=== PATIENT | female | born 1955 | race Two or more races ===

== ENCOUNTER 2018-12-12 12:36 | Outpatient (CLI) | payer MEDICAID | END 2018-12-12 12:37 | disposition home or self-care (01) | LOC: DI 12:36 | PROVIDERS: ATTEND Internal Medicine Cardiovascular Disease | DX: R94.31 Abnormal electrocardiogram [ECG] [EKG] (principal); R07.89 Other chest pain; I10 Essential (primary) hypertension; I45.10 Unspecified right bundle-branch block | CPT/HCPCS: 93306 ==

== ENCOUNTER 2019-01-10 12:49 | Outpatient (CLI) | payer MEDICAID ==
--- NOTE | 2019-01-10 18:42 | XRAY Report ---
Reason: R/O PNEUMONIA Procedure Date: 01/10/2019 Accession Number: [id number] / [id number] Procedure: XR - Chest 2 View X-Ray CPT Code: 78533 FULL RESULT: EXAM: CHEST RADIOGRAPHY EXAM DATE: 01/10/2019 01:01 PM. CLINICAL HISTORY: R/O PNEUMONIA. COMPARISON: None. TECHNIQUE: 2 views. FINDINGS: Lungs/Pleura: No focal opacities evident. No pleural effusion. No pneumothorax. Normal volumes. Mediastinum: Heart and mediastinal contours are unremarkable. Other: Degenerative change in the spine with S-shaped thoracolumbar scoliosis. IMPRESSION: Clear lungs. RADIA
== END 2019-01-10 12:50 | disposition home or self-care (01) ==
LOC: DI 12:49
PROVIDERS: ATTEND Family Medicine
DX: J20.9 Acute bronchitis, unspecified (principal)
CPT/HCPCS: 71046

== ENCOUNTER 2019-05-12 19:27 | Outpatient (CLI) | payer MEDICAID | END 2019-05-12 19:28 | disposition critical access hospital (66) | LOC: EMS 19:27 | PROVIDERS: ATTEND Surgery | DX: S89.92XA Unspecified injury of left lower leg, initial encounter (principal); W11.XXXA Fall on and from ladder, initial encounter; Y92.007 Garden or yard of unspecified non-institutional (private) residence as the place of occurrence of the external cause | CPT/HCPCS: A0425; A0429; A0999 ==

== ENCOUNTER 2019-05-12 19:45 | Emergency (ER) | payer MEDICAID ==
--- NOTE | 2019-05-12 20:01 | ED Physician Documentation ---
History of Present Illness - Stated complaint Stated Complaint: KNEE INJURY - Chief complaint Chief Complaint: Trauma Ext PD PAST MEDICAL HISTORY - Allergies Allergies/Adverse Reactions: Allergies Allergy/AdvReac Type Severity Reaction Status Date / Time Penicillins Allergy Itching Verified 05/12/19 19:59 Results - Vitals Vitals: Vital Signs - 24 hr 05/12/19 19:47 Temperature 36.6 C Heart Rate 86 Respiratory 16 Rate Blood Pressure 144/78 H O2 Saturation 96 Oxygen O2 Source Room air
[2019-05-12] MEDS ORDERED: MORPHINE 2 MG/ML CARPUJECT IVP STA ×2 (20:13→22:23)
[2019-05-12] MEDS ORDERED: ONDANSETRON 4 MG/2 ML VIAL IVP STA (20:13)
--- NOTE | 2019-05-12 21:37 | XRAY Report ---
Reason: Fall, impact to lower leg Procedure Date: 05/12/2019 Accession Number: [id number] / [id number] Procedure: XR - Ankle 3 View LT CPT Code: FULL RESULT: EXAM: LEFT ANKLE RADIOGRAPHY EXAM DATE: 05/12/2019 09:25 PM. CLINICAL HISTORY: Fall, impact to lower leg. COMPARISON: None. TECHNIQUE: 3 views. FINDINGS: Bones: No acute fracture. No suspicious osseous lesion. Joints: No significant joint space narrowing. No dislocation. Other: None. IMPRESSION: No acute osseous abnormality. RADIA
--- NOTE | 2019-05-12 21:41 | XRAY Report ---
Reason: Impact to left leg/knee, swelling Procedure Date: 05/12/2019 Accession Number: [id number] / [id number] Procedure: XR - Tib/Fib LT CPT Code: FULL RESULT: EXAM: LEFT TIBIA/FIBULA RADIOGRAPHY EXAM DATE: 05/12/2019 09:25 PM. CLINICAL HISTORY: Impact to left leg/knee, swelling. COMPARISON: KNEE 3 VIEW LT 05/12/2019 8:48 PM. TECHNIQUE: 2 views. FINDINGS: Bones: Comminuted proximal tibial fracture extending to the tibial plateau. There is separation least 1.5 cm in the tibial plateau. Proximal fibular comminuted fracture. Posterior angulation Lateral displacement of the distal fibula by one shaft width. Soft Tissues: Soft tissue swelling. IMPRESSION: 1. Comminuted proximal tibial fracture extending to the tibial plateau with separation of 1.5 cm at the plateau 2. Proximal fibular fracture with angulation, offset RADIA
--- NOTE | 2019-05-12 21:43 | XRAY Report ---
Reason: fall/injury Procedure Date: 05/12/2019 Accession Number: [id number] / [id number] Procedure: XR - Knee 3 View LT CPT Code: FULL RESULT: EXAM: LEFT KNEE RADIOGRAPHY EXAM DATE: 05/12/2019 09:25 PM. CLINICAL HISTORY: Fall/injury. COMPARISON: None. TECHNIQUE: 3 views. FINDINGS: Bones: Acute comminuted lateral tibial plateau fracture with approximate 3 cm lateral displacement of the fracture fragments. The tibial plateau fracture is in continuity with an acute comminuted transverse proximal tibial metaphyseal fracture which is mildly impacted and minimally laterally displaced. Acute comminuted fracture of the proximal fibular diaphysis with one shaft width lateral displacement of the largest distal fracture fragment. No suspicious osseous lesion. Joints: Large lipohemarthrosis. No significant joint space narrowing. No dislocation. Other: Diffuse soft tissue swelling about the knee. IMPRESSION: 1. Acute comminuted lateral tibial plateau fracture with approximate 3 cm lateral displacement of the fracture fragments. Recommend orthopedic surgery consultation and CT knee for further evaluation. 2. The tibial plateau fracture is in continuity with an acute comminuted transverse proximal tibial metaphyseal fracture which is mildly impacted and mildly laterally displaced. 3. Acute comminuted fracture of the proximal fibular diaphysis with one shaft width lateral displacement of the largest distal fracture fragment. 4. Large lipohemarthrosis. RADIA
[2019-05-12 22:29] LABS: BASOPHILS # (AUTO) 0.1 10^3/uL (0.0-0.1); BASOPHILS % (AUTO) 0.4 %; EOSINOPHILS # (AUTO) 0.2 10^3/uL (0.0-0.7); EOSINOPHILS % (AUTO) 1.5 %; HGB - HEMOGLOBIN 11.7 g/dL (12.0-16.0); LYMPHOCYTES # (AUTO) 4.1 10^3/uL (1.5-3.5); LYMPHOCYTES % (AUTO) 30.1 %; MEAN CORPUSCULAR HEMOGLOBIN 34.5 pg (27.0-31.0); MEAN CORPUSCULAR HGB CONC 34.6 g/dL (32.0-36.0); MEAN CORPUSCULAR VOLUME 99.7 fL (81.0-99.0); MEAN PLATELET VOLUME 9.3 fL (7.9-10.8); MONOCYTES # (AUTO) 0.8 10^3/uL (0.0-1.0); MONOCYTES % (AUTO) 5.6 %; NEUTROPHILS # (AUTO) 8.3 10^3/uL (1.5-6.6); NEUTROPHILS % (AUTO) 61.7 %; PLT - PLATELET COUNT 221 10^3/uL (130-450); RED BLOOD COUNT 3.39 10^6/uL (4.20-5.40); RED CELL DISTRIBUTION WIDTH 13.1 % (12.0-15.0); WHITE BLOOD COUNT 13.5 x10^3/uL (4.8-10.8)
[2019-05-12 22:33] LABS: PT - PROTHROMBIN TIME 11.7 secs (9.9-12.6)
--- NOTE | 2019-05-12 22:38 | ED Physician Documentation ---
History of Present Illness - Stated complaint Stated Complaint: KNEE INJURY - Chief complaint Chief Complaint: Trauma Ext - Additonal information Additional information: This is a 64-year-old female with a history of osteoporosis, who presents with left knee and lower leg pain after fall. Patient was on a stepladder working around her house this afternoon around 2:30 PM, when she fell, Impacting the knee directly. She felt a pop/crunch and soft fragment of bone tenting her skin afterwards. She was trying to crawl to her house to get help, and eventually his evening she was able to call EMS and they brought her here for evaluation. She denies numbness, but does have severe pain with movement of the leg just below the knee. Review of Systems Constitutional: denies: Fever Cardiac: denies: Chest pain / pressure Respiratory: denies: Dyspnea GI: denies: Abdominal Pain Musculoskeletal: reports: Extremity pain Neurologic: denies: Generalized weakness PD PAST MEDICAL HISTORY - Past Medical History Past Medical History: Yes Cardiovascular: Hypertension, High cholesterol Musculoskeletal: Osteoporosis - Allergies Allergies/Adverse Reactions: Allergies Allergy/AdvReac Type Severity Reaction Status Date / Time Penicillins Allergy Itching Verified 05/12/19 19:59 - Social History Does the pt smoke?: Yes Smoking Status: Current every day smoker Does the pt drink ETOH?: Yes Does the pt have substance abuse?: No PD ED PE NORMAL - Vitals Vital signs reviewed: Yes - General General: Alert and oriented X 3 - HEENT HEENT: Atraumatic - Neck Neck: No bony TTP - Cardiac Cardiac: RRR - Respiratory Respiratory: No respiratory distress, Clear bilaterally - Abdomen Abdomen: Soft, Non distended - Extremities Extremities: Other (Left leg has a deformity and swelling and bruising from below the knee to the ankle. No tenderness or deformity of the hips/pelvis and femur. Strong DP and PT pulses bilaterally, sensation to light touch is intact, and patient is able to wiggle all toes.) - Neuro Neuro: Alert and oriented X 3 - Psych Psych: Normal mood, Normal affect Results - Vitals Vitals: Oxygen O2 Source Room air - Labs Labs: Laboratory Tests 05/12/19 05/12/19 05/12/19 21:45 21:45 21:45 WBC 13.5 H RBC 3.39 L Hgb 11.7 L Hct 33.8 L MCV 99.7 H MCH 34.5 H MCHC 34.6 RDW 13.1 Plt Count 221 MPV 9.3 Neut # (Auto) 8.3 H Lymph # (Auto) 4.1 H Jessamine # (Auto) 0.8 Eos # (Auto) 0.2 Baso # (Auto) 0.1 Absolute Nucleated RBC 0.00 Nucleated RBC % 0.0 PT 11.7 INR 1.0 Sodium 141 Potassium 4.0 Chloride 107 Carbon Dioxide 24 Anion Gap 10.0 BUN 17 Creatinine 0.7 Estimated GFR (MDRD) 84 L Glucose 104 H Calcium 8.9 Total Bilirubin 0.5 AST 20 ALT 15 Alkaline Phosphatase 53 Total Protein 6.7 Albumin 3.7 Globulin 3.0 Albumin/Globulin Ratio 1.2 Lipase 29 - Rads (name of study) XR knee, tib/fib, ankle Radiology: Other (Comminuted displaced tibial plateau fracture and fibular fracture.) Procedures - Splint (location) Lower extremity left Splint applied by: Tech Type of splint: Long leg, Posterior Other: Patient tolerated well, No complications, Neurovascular intact PD MEDICAL DECISION MAKING - ED course Complexity details: considered differential (Fracture, dislocation, contusion, ) ED course: Pt presents with left leg swollen and painful after a fall. XR shows a comminuted and displaced tibial fracture extending into the plateau, and a fibular fracture. The limb is neurovascularly intact. No other signs of trauma to her body. Posterior long leg splint applied and leg remains neurovascularly intact afterwards. Pt was given multiple doses of IV pain medication for XR and splinting, her pain is well controlled when the leg is held still. Labs are show a mild anemia and leukocytosis which is likely demargination, otherwise unremarkable. I discussed the fracture with the patient and that this needs orthopedic management and surgery. She is agreeable to transfer. Dr. Sandhu accepted the patient for transfer at [facility]. She was transferred ALS. Departure - Departure Disposition: 02 Transfer Acute Care Hosp Clinical Impression: Tibial plateau fracture, left Qualifiers: Encounter type: initial encounter Fracture type: closed Qualified Code(s): S82.142A - Displaced bicondylar fracture of left tibia, initial encounter for closed fracture Fibula fracture Qualifiers: Encounter type: initial encounter Fibula location: proximal Fracture type: closed Fracture morphology: unspecified fracture morphology Laterality: left Qualified Code(s): S82.832A - Other fracture of upper and lower end of left fibula, initial encounter for closed fracture Condition: Stable Discharge Date/Time: 05/13/19 00:39
[2019-05-12 22:43] LABS: ALBUMIN 3.7 g/dL (3.2-5.5); ALBUMIN/GLOBULIN RATIO 1.2 (1.0-2.2); BILIRUBIN,TOTAL 0.5 mg/dL (0.2-1.0); CALCIUM 8.9 mg/dL (8.5-10.3); CREATININE 0.7 mg/dL (0.4-1.0); TOTAL PROTEIN 6.7 g/dL (6.7-8.2)
[2019-05-12] MEDS ORDERED: METHOCARBAMOL 500 MG TABLET PO STA (23:18)
[2019-05-12 23:35] VITALS: BP 121/74
[2019-05-13] MEDS ORDERED: MORPHINE 2 MG/ML CARPUJECT IVP STA (00:37)
[2019-05-13] MEDS ORDERED: MORPHINE 2 MG/ML CARPUJECT ONE (00:40)
== END 2019-05-13 00:39 | disposition short-term general hospital (02) ==
LOC: EDUNIT# → ED 19:45
DX: S82.142A Displaced bicondylar fracture of left tibia, initial encounter for closed fracture (principal); S82.832A Other fracture of upper and lower end of left fibula, initial encounter for closed fracture; W11.XXXA Fall on and from ladder, initial encounter; Y93.89 Activity, other specified; Y92.008 Other place in unspecified non-institutional (private) residence as the place of occurrence of the external cause; D64.9 Anemia, unspecified; I10 Essential (primary) hypertension; M81.0 Age-related osteoporosis without current pathological fracture; F17.200 Nicotine dependence, unspecified, uncomplicated
CPT/HCPCS: 29505; 36415; 73562; 73590; 73610; 80053; 83690; 85025; 85610; 96374; 96376; 99284; 99285; A9270

== ENCOUNTER 2021-04-15 12:35 | Outpatient (CLI) | payer MEDICARE, MEDICAID | END 2021-04-15 23:59 | disposition home or self-care (01) | LOC: LAB.N 12:35 | PROVIDERS: ATTEND Nurse Practitioner | DX: R05 Cough (principal); Z20.822 Contact with and (suspected) exposure to COVID-19 ==

== ENCOUNTER 2022-06-09 11:25 | Outpatient (CLI) | payer MEDICARE, MEDICAID ==
--- NOTE | 2022-06-09 18:08 | XRAY Report ---
PROCEDURE: Lumbar Spine 2 View INDICATIONS: LOW BACK PX TECHNIQUE: 3 views of the lumbar spine were acquired. COMPARISON: None. FINDINGS: Bones: 5 whc-hns-iocellb vertebrae are present. Mild thoracolumbar levoscoliosis with the apex at L1 . There is asymmetric left-sided disc height loss and spurring at L5-4-5. Grade 1 anterolisthesis L5 on S1. AP alignment is otherwise normal. Severe disc height loss at L5-S1 and moderate disc height lo ss at the other levels. No vertebral body compression fractures. No suspicious bony lesions. Soft tissues: Overlying bowel gas pattern is normal. No suspicious soft tissue calcifications. IMPRESSION: 1. Spondylosis and spondylolisthesis L5-S1. 2. Asymmetric disc degeneration L4-5 accentuating a mild thoracolumbar levoscoliosis. Reviewed by: Carole Nava MD on 06/09/2022 5:07 PM MARCELO Approved by: Carole Nava MD on 06/09/2022 5:07 PM MARCELO Station ID: [id number]
== END 2022-06-09 11:26 | disposition home or self-care (01) ==
LOC: DI.N 11:25
PROVIDERS: ATTEND Internal Medicine
DX: M47.816 Spondylosis without myelopathy or radiculopathy, lumbar region (principal); M43.16 Spondylolisthesis, lumbar region

== ENCOUNTER 2023-01-20 11:14 | Outpatient (CLI) | payer MEDICARE, MEDICAID ==
--- NOTE | 2023-01-20 14:45 | XRAY Report ---
PROCEDURE: Hip w/Pelvis 1V RT INDICATIONS: RIGHT HIP PAIN TECHNIQUE: AP pelvis with lateral view(s) of the right hip(s). COMPARISON: None. FINDINGS: Bones: No fractures or dislocations. Minimal bilateral hip DJD. No suspicious bony lesions. Soft tissues: No suspicious soft tissue calcifications or masses. IMPRESSION: Minimal bilateral hip DJD. If clinically indicated MRI could be considered for further evaluation. Reviewed by: Fausto Razo MD on 01/20/2023 2:43 PM PDT Approved by: Fausto Razo MD on 01/20/2023 2:43 PM PDT Station ID: [id number]
== END 2023-01-20 11:15 | disposition home or self-care (01) ==
LOC: DI.N 11:14
PROVIDERS: ATTEND Family Medicine
DX: M16.0 Bilateral primary osteoarthritis of hip (principal)

== ENCOUNTER 2023-09-22 12:10 | Outpatient (CLI) | payer MEDICARE, MEDICAID ==
--- NOTE | 2023-09-22 16:29 | XRAY Report ---
PROCEDURE: Lumbar Spine 2-3V INDICATIONS: SCIATICA TECHNIQUE: 2 views of the lumbar spine were acquired. COMPARISON: None. FINDINGS: Bones: 5 ahi-led-tuyrash vertebrae are present. Grade 1 anterolisthesis of L5 on S1. Severe disc hei ght loss at L1-2, L2-3, with opposing endplate sclerosis. Moderate to severe disc height loss at aguilar ining levels. Slight rightward curvature of the spine. Facet arthrosis at L4-S1. Soft tissues: Overlying bowel gas pattern is normal. No suspicious soft tissue calcifications. IMPRESSION: Moderate to severe, multilevel degenerative disc disease and lower lumbar facet arthrosis. Grade 1 anterolisthesis of L5 on S1 secondary to facet arthrosis. Reviewed by: Efrain Avelar MD on 09/22/2023 4:28 PM PST Approved by: Efrain Avelar MD on 09/22/2023 4:28 PM PST Station ID: [id number]
== END 2023-09-22 12:11 | disposition home or self-care (01) ==
LOC: DI 12:10
PROVIDERS: ATTEND Family Medicine
DX: M54.31 Sciatica, right side (principal); M47.816 Spondylosis without myelopathy or radiculopathy, lumbar region; M47.817 Spondylosis without myelopathy or radiculopathy, lumbosacral region; M51.36 Other intervertebral disc degeneration, lumbar region; M43.17 Spondylolisthesis, lumbosacral region